=== PATIENT | female | born 1990 | race Two or more races ===

== ENCOUNTER 2018-12-12 06:03 | Emergency (ER) | payer MEDICAID ==
[~2018-12-12] VITALS: Ht 160 cm; Wt 81.6 kg
[2018-12-12 06:13] VITALS: BP 149/99
== END 2018-12-12 06:53 | disposition home or self-care (01) ==
LOC: ER 06:03
DX: H66.92 Otitis media, unspecified, left ear (principal)

== ENCOUNTER 2019-04-04 07:46 | Emergency (ER) | payer MEDICAID ==
[~2019-04-04] VITALS: Ht 160 cm; Wt 80.3 kg
[2019-04-04 07:51] VITALS: BP 148/52
[2019-04-04] MEDS ORDERED: methylPREDNISolone SOD SUCC 125 MG/2 ML VL IM ONE (08:15)
[2019-04-04] MEDS ORDERED: cefTRIAXone SOD 1,000 MG VL IM ONE (08:15)
== END 2019-04-04 08:31 | disposition home or self-care (01) ==
LOC: ER 07:48
DX: J03.90 Acute tonsillitis, unspecified (principal)
CPT/HCPCS: 96372; 99283; J0696; J2930